=== PATIENT | female | born 1950 | race Caucasian/White ===

== ENCOUNTER 2020-07-26 18:23 | Inpatient (IN) | payer OTHER, MEDICAID ==
[~2020-07-26] VITALS: Ht 147.3 cm; Wt 56.3 kg
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
[2020-07-27 18:02] LABS: FOLIC ACID 22.6 ng/mL (8.6-58.9)
--- NOTE | 2020-07-28 00:11 | NUR ---
ARRIVED ON THE SENIOR BEHAVIOR FLOOR VIA W/C ACCOMPANIED BY X1 STAFF FROM [facility] EMERGENCY DEPARTMENT @ 20:10. A&OX4. COMPLAINING THAT DOES NOT BELONG IN THE HOSPITAL AND HAS NEVER HAD ANY HISTORY OF BEING CRAZY. vs 147/61 90 18 95% REFUSED TO ALLOW TEMP TO BE TAKEN. HRRR, LUNGS CTA, ABD NX 4q OVER A ROUND SOFT ABDOMEN. REPORTS BM 2 DAYS AGO. HAS APROPRIATE RANGE OF MOTION OF UPPER EXTREMITIES, HOWEVER WHEN SIGNING CONSENT TO TREAT, CAN HOLD THE PEN BUT CAN BARELY WRITE SIGNATURE. REPORTS HER STIFF HANDS ARE DUE TO DIABETES. FEET HAVE <3SEC CAP REFILL, PEDAL PULSES PRESENT. MOVES ALL EXTREMITIES. REPORTS VERY TICKLISH FEET. REPORTS CANNOT WALK AT ALL. NOTED TO BE ABLE TO STAND, BEAR WEIGHT AND PIVOT TO TRANSFER. WEARS GLASSES, HAS A BLACK PAIR WITH HER. REPORTS WEARS PARTIAL UPPER DENTURE, BUT DID NOT BRING IT TO THE HOSPITAL. ORAL TISSUE PINK. SKIN WARM AND DRY, NO SKIN BREAKDOWN NOTED. BED IN LOW POSITION, BED ALARM SET, WILL CONTINUE TO MONITOR PER UNIT PROTOCOL FOR SAFETY AND COMFORT.
[2020-07-28 01:06] LABS: GLYCOHEMOGLOBIN (HGB A1C) 11.4 % (4.8-5.6)
[2020-07-28 09:13] VITALS: BP 101/65
--- NOTE | 2020-07-28 11:53 | NUR ---
ANGRY FACIAL EXPRESSION,IRRITABLE MOOD-BECAME UPSET WHEN APPROACHED WITH AM ACCUCHECK AND INSULIN STATING "I DON'T CHECK MINE THAT OFTEN IT MAKES IT WORSE-I WILL DO IT THIS ONE TIME BUT NO MORE-BEGAN TO YELL AND PULLED AWAY WITH ATTEMPTED ADMINISTRATION OR O800 INSULIN "GOD EDUARD YOU I WILL LEAVE RIGHT NOW IF YOU DO THAT TO ME AGAIN" IS SBA X1 THIS AM-SMALL BM. RELUCTANT TO TAKE AM MEDICATIONS REQUESTING REPEAT X 4 OF NAMES-DOSES ETC PRIOR TO TAKING, VS STABLE-BRANDI PAIN/DISCOMFORT
[2020-07-28 20:53] VITALS: BP 104/71
--- NOTE | 2020-07-29 06:30 | NUR ---
PROGRESS PT IRRITABLE LAST NIGHT STATED "SHE DIDN'T THINK i WOULD SURVIVE THE NEXT FEW DAYS# BUT REFUSED TO EXPLAIN WHAT SHE EXACTLY MEANT. EASILY FRUSTRATED, DISTRUSTFUL. TOOK SOME MEDS AND REFUSED OTHERS UPSET THAT HER CLANEZEPAM WAS DC'D AND ATIVAN ORDERED IN PLACE. I ADVISED HER TO SPEAK TO THE DOCTOR ABOUT IT WHEN HE MAKES ROUNDS PT SETTLED DOWN THEN WENT TO BED SLEPT MOST OF NIGHT. CONTINUE POC.
[2020-07-29 09:57] VITALS: BP 104/71
[2020-07-29 09:59] VITALS: BP 116/75
--- NOTE | 2020-07-29 11:10 | NUR ---
ACCEPTED CARE OF PATIENT FROM 7P-7AM SHIFT. PATIENT IS UP,DRESSED IN W/C READY FOR BREAKFAST. REPEATEDLY VOICES THAT SHE DOESNT NEED TO BE HERE AND WHY CANT SHE TALK TO . ALSO NUMEROUS COMPLAINTS ABOUT FOOD. PT DOES TAKE AM MEDS AFTER NURSE EXPLAINING WHAT EACH ONE IS FOR. ACCUCHECK IS DONE AND REC INSULIN PER SLIDING SCALE. PT TAKES MEDS WHOLE,FEEDS SELF. PT ATTENDS GROUPS THIS AM AND WORKS WITH OT. SETS IN DAYROOM WITH PEERS BUT DOESNT INITIATE CONVERSATION.
--- NOTE | 2020-07-29 17:33 | NUR ---
DEBORAH was able to speak to the Pt's DPOA, Shamir Sarkar [phone]. Shamir informed the Pt lives in independently in an apartment. The Pt has recently started having frequent falls, increased confusion, and paranoia. Shamir stated the Pt has expressed feeling someone is breaking in her home and stealing her stuff or moving things around. Pt stays in her bedroom most of the time and only leaves to check the mail for 10 mins a day because Pt believes someone is watching her and waiting until she leaves to break in her home. Pt leaves her apartment with no pants just the adult diaper. Pt had to leave her previous home due to hoarding. Shamir also reported Pt does not take her medication or care for herself proper at home. On Pt was found in the apartment with feces and vomit on her and was unable to clean herself. Pt did have a home health aide company coming in to assist but Pt gets into fights withthe staff or fires them. PT family is intrested in a memory care LTC after SNF stay. DEBORAH will continue to follow
--- NOTE | 2020-07-29 17:51 | NUR ---
1700-PT IS TEARFUL TALKING WITH NURSE. WANTS TO GO HOME. COMPLAINS ABOUT FOOD HERE ON UNIT AND WORKED WITH HER TO PICK OUT HER SUPPER ITEMS."IM NOT GOING TO TAKE ANY MEDS OR GO TO GROUPS NOTHING IS HELPING ME. PT AGREES TO COME TO SUPPER AND EATS 100% OF ITEMS SHE PICKED OUT. TAKES PO MEDS. ENJOYS WATCHING NEWS WITH STAFF AND PEERS.
[2020-07-29 20:36] VITALS: BP 148/49
--- NOTE | 2020-07-30 04:59 | NUR ---
ASSUMED PT'S CARE THIS PM SHIFT. ALERT AND ORIENTED. PT WAS IN HER ROOM AT MEMO OF ASSESSMENT AND MED PASS. PT WAS CALM AND COOPERATIVE WITH MOST CARE. DID REFUSE ACCU CHECK THIS SHIFT. TOOK MEDS PER EMAR. PT SLEPT WELL THIS SHIFT. FALL PRECAUTION IN PLACE. HOURLY ROUNDINGS MADE. WILL CONTINUE TO MONITOR.
[2020-07-30 08:16] VITALS: BP 104/54
--- NOTE | 2020-07-30 13:27 | NUR ---
Alert and orientated X 3-4. Adamantly refusing meds, states she wants to go home and will refuse meds to achieve that goal. Contacted DPOA who then contacted other family members. They state they want her BG to be in better control and consent to meds being given by other routes if she continues to refuse meds. Dr. Meyer and SUPERMARKET MANAGER Nati notified. Pt. agreed to take meds on 3rd approach at 1015. Dr. Meyer subsequently ordered NPH insulin which pt took reluctantly after lunch. Denies SI/HI. Breath sounds clear. Reg HR auscultated. Color pink with brisk capillary refill and palpable peripheral pulses. Yellow urine per toilet. Active bowel sounds over soft, rounded abdomen. Large, brown soft stool per brief. Self propels self around unit in WC, requires supervision with transfers.
[2020-07-30 14:19] LABS: ABSOLUTE NEUTROPHILS 3.3 thou/uL (1.4-8.2); BASOPHILS 0.6 % (0.0-2.0); EOSINOPHILS 5.3 % (0.0-3.0); HEMATOCRIT 33.2 % (37.0-47.0); MCV 87.8 fL (80.0-100.0); MONOCYTES 11.8 % (1.0-8.0); PLATELET COUNT 165 thou/uL (150-400); POLYS 51.3 % (36.0-66.0); RBC 3.78 mil/uL (4.20-5.00); WBC 6.3 thou/uL (4.0-11.0)
[2020-07-30 14:36] LABS: ALBUMIN 2.8 g/dL (3.4-5.0); CALCIUM 9.4 mg/dL (8.5-10.1); CREATININE 0.8 mg/dL (0.6-1.0); MAGNESIUM 1.8 mg/dL (1.8-2.4); POTASSIUM 3.7 mmol/L (3.5-5.1); TOTAL BILIRUBIN 0.3 mg/dL (0.2-1.0); TOTAL PROTEIN 6.6 g/dL (6.4-8.2)
[2020-07-30 19:21] VITALS: BP 120/82
--- NOTE | 2020-07-31 00:35 | NUR ---
ASSUMED PT'S CARE THIS PM SHIFT. PUBLIC HEALTH EDUCATOR INFORMED NURSING THAT PT REFUSED ACCU CHECK. OTHERWISE PT WAS COOPERATIVE WITH REST OF CARE. PT VOICED FRUSTRATION ABOUT BEING HERE. PT VOICED THAT SHE WAS "TRICKED". PT VOICED THAT SHE WAS ASKED WHAT SHE WOULD DO IF HER ENTIRE FAMILY COMMITTED SUICIDE. PT VOICED SHE ANSWERED THAT SHE WOULD COMMIT SUICIDE ALSO AND THEY TAGGED HER BEING SUICIDAL AND ADMITTED HER FOR SI. PT VOICED SHE DOES NOT TRUST THE DOCTORS BECAUSE THEY WANT TO KEEP GIVING HER MEDS THAT SHE DOES NOT NEED. PT VOICED THAT THIS WAS ALL PART OF THE WAYS [employer] AND [employer] ARE TRYING TO REAP PEOPLE OFF IN ORDER TO MAKE MONEY. PT VOICED TO NURSING THAT EVEN HER KIDS ARE NOT HAPPY THAT SHE WAS ADMITTED INTO A BEHAVIORAL UNIT. PT EDUCATED ON IMPORTANCE OF COOPERATING WITH CARE. ALLOWING ACCU CHECKS AND TAKING MEDICATIONS. PT VOICED SHE CAN HAVE HER BLODO SUGAR CHECKED TWICE A DAY. MORNING AND BEDTIME. PT ALSO EDUCATED TO VOICE HER CONCERNS TO THE CONCERNS TO DOCTORS AND SOCIAL WORKERS. PT SEEMED CALM AND VOICED WILLINGNESS TO BE MORE COOPERATIVE WITH CARE. PT CURRENTLY IN BED, SLEEPING. WILL CONTINUE TO MONITOR.
--- NOTE | 2020-07-31 04:23 | NUR ---
PT CONTINUES TO SLEEP WELL THIS SHIFT. WILL CONTINUE TO MONITOR.
--- NOTE | 2020-07-31 08:45 | NUR ---
DEBORAH sent updates to [facility] for pt. SW team will continue to follow pt during her stay on this unit.
[2020-07-31 09:00] VITALS: BP 120/59
--- NOTE | 2020-07-31 11:42 | NUR ---
PT CARE ASSUMED AT 0700. A&Ox4. PT STILL FRUSTRATED THAT SHE WAS "TRICKED" INTO HER ADMISSION. STATED THIS AM THAT SHE CALLED OUT FOR HELP WHEN HAVING A BM BUT NOONE CAME TO HELP HER. WHEN ENTERING THE BATHROOM PT HAD SMEARED STOOL ALL OVER THE BATHROOM FLOOR, HEARN, TOILET, AND HERSELF. SHOWER WAS GIVEN. PT TOOK ALL MEDS WITHOUT ANY ISSUES. ACHS WITH COVERAGE. VITALS STABLE. STOOL SAMPLE COLLECTED. URINE SAMPLE NEEDED. WILL CONTINUE TO MONITOR.
[2020-07-31 18:51] LABS: URINE BILIRUBIN NEGATIVE (Negative); URINE BLOOD 1+ (Negative); URINE CLARITY CLEAR; URINE COLOR YELLOW; URINE GLUCOSE-RANDOM* TRACE (Negative); URINE KETONES NEGATIVE (Negative); URINE LEUKOCYTES-REFLEX TRACE (Negative); URINE NITRITE-REFLEX NEGATIVE (Negative); URINE PROTEIN (DIPSTICK) 1+ (Negative); URINE UROBILINOGEN 0.2 E.U./dl (0.2-1.0)
[2020-07-31 18:59] LABS: CASTS None Seen /LPF (None Seen); CRYSTALS None Seen /LPF (None Seen); SQUAMOUS >10 Many /LPF (0-3); URINE RBC 3-10 Few /HPF (0-2); URINE WBC-REFLEX 0-5 Rare /HPF (0-5)
[2020-07-31 19:00] LABS: BACTERIA-REFLEX None Seen /HPF (None Seen)
[2020-07-31 20:21] VITALS: BP 157/58
--- NOTE | 2020-07-31 21:21 | NUR ---
ASSUMED CARE ON 07/31/20 @ 1900, ACUCHECK 196, INSULIN HELD DUE TO LOW AND UNSTABLE BLOOD SUGARS AT EVENING MEAL. DESCRIBES PAIN IN LOWER BACK AND LOWER EXTREMITIES, HOWEVER REFUSED TYLENOL 650, SAYING THAT IT DOES NOT WORK. REPORTS LARGE SOFT BM TODAY, REFUSED STOOL SOFTENER. TOOK MEDS WHOLE WITH WATER. BED IN LOW POSITION, WILL CONTINUE TO MONITOR PER UNIT PROTOCOL.
[2020-08-01 07:50] VITALS: BP 96/47
--- NOTE | 2020-08-01 10:15 | NUR ---
ASSUMED CARE AT 0700 THIS MORNING. PT. UP, DRESSED AND IN THE DINING ROOM. SHE CONTINUES TO SAY, "I HAS BEEN HERE A WEEK AND I SHOULD BE ABLE TO GO HOME TODAY". SHE ATE WELL AT BREAKFAST AND TOOK HER MEDICATIONS WITHOUT PROLEMS NOTED.
--- NOTE | 2020-08-01 12:47 | NUR ---
RECEIVED EVAL ORDERS FROM DR. ONTIVEROS. OT EVALAUTED PT. ON 07/29/2020 AND DETERMINED PT. TO BE AT INDEP. LEVEL FOR TRANSFERS, W/C MOBILITY, SELF-CARES, AND TOILETING. OT SPOKE WITH PT. AT 1124 TODAY AND PT. DECLINES A REPEATED EVALUATION AT THIS TIME. STAFF REPORT PT. HAS NOT HAD A CHANGE IN FUNCTION.
--- NOTE | 2020-08-01 14:44 | NUR ---
Spoke with FANI Sue [phone]. Shamir was looking for an update on the patient. Was wondering about discharge and to where. Told Shamir that I know SW has been in contact with her current living facility and that SW would be in touch with her tomorrow to review options for the patient. Shamir very agreeable to this and acknowledged that the other daughters are anxious to have patient discharged before Val. Shamir herself understands that patient needs to be here and complete needed treatments before discharge.
[2020-08-01 20:08] VITALS: BP 136/81
--- NOTE | 2020-08-02 05:33 | NUR ---
PATIENT IS A/0X3-4. SHE HAS BEEN IN BED ALL SHIFT. SHE IS UP TO BS WITH ASSIST X1. SHE HAD LARGE FORMED BM 08/01. SHE DENIES PAIN. SHE HAS BEEN PLEASANT AND COOPERATIVE. ROUTINE ROUNDS TO ASSESS STATUS AND SAFETY OF PATIENT. CONTINUING TO MONITOR.
[2020-08-02 07:55] VITALS: BP 143/59
--- NOTE | 2020-08-02 09:22 | NUR ---
Care assumed of patient at 0715: Patient assisted out of bed with min assist x1. Using w/c for locomotion about room and unit. Patient alert and oriented x3-4. Patient fussy at times, demanding water instead of milk. Education provided regarding using manners and being polite to others. Patient accepted education without issue. Patient stated she did not "need" her medications but took them whole without issue. Ate breakfast without issue. No delusional or paranoia behaviors observed. No talk thus far this AM about going home, not belonging in the hospital, etc. Patient retired back to bed after breakfast and is resting at this time.
--- NOTE | 2020-08-02 13:00 | EKG ---
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 Wafer: Caleb PYLE : 1950 Requested By: Yumiko Iyer Order Number: [id number] MD: Karthik Turner Measurements Intervals [place] Rate: 83 P: 54 OK: 114 QRS: 67 QRSD: 90 T: 48 QT: 377 QTc: 443 Interpretive Statements Sinus rhythm Borderline short OK interval Compared to ECG 07/27/2020 10:47:02 Intraventricular conduction delay no longer present Electronically Signed On 08-02-2020 13:00:17 GUNITE MIXER by Karthik Turner [email or web address] <ELECTRONICALLY SIGNED> By: Karthik Turner MD, [facility] 08/02/20 1300 1236 1236 Karthik Turner MD, FACC /EPI
--- NOTE | 2020-08-02 16:09 | NUR ---
DEBORAH spoke with Michi at [facility] concerning discharge. Micih seemed hesitant about accpting the Pt back however expressed understanding of the agreement to take Pt back. Michi did ask if DEBORAH could send out referrals on the Pt to see if another facility would accept the Pt prior to d/c. Pt is set for d/c 08/03/2020 @ 1300 to [facility] SNF
--- NOTE | 2020-08-02 16:14 | NUR ---
DEBORAH contanted Shamir concerning referrals. Shamir is in agreement with DEBORAH sending referrals out for memory care facilities. DEBORAH sent referral to the following [email or web address] [facility] Jyoti Patel [facility]
[2020-08-02 19:26] VITALS: BP 131/66
--- NOTE | 2020-08-03 05:09 | NUR ---
PATIENT WAS UP IN NIGHT TO USE BSC A COUPLE OF TIMES. SHE DENIES PAIN, SI/HI/AVH. SHE IS EAGER TO GO HOME TODAY. COVID PCR LAB RESULT CAME BACK AT 0430 AND IS NEGATIVE. PATIENT APPEARS TO BE SLEEPING AT THIS TIME. BED IN LOW POSITION AND BED ALARM IS ON. CONTINUING TO ROUND TO ASSESS SAFETY AND STATUS OF PATIENT.
[2020-08-03] MEDS ORDERED: ZOLOFT25 MG PO (09:27)
[2020-08-03] MEDS ORDERED: COZAAR 25 MG TA25 M1 PO (09:27)
[2020-08-03] MEDS ORDERED: CEFUROXIME250 MG PO (09:27)
[2020-08-03] MEDS ORDERED: VITAMIN D325 MC1 PO (09:28)
[2020-08-03] MEDS ORDERED: TRAZODONE HCL50 MG PO (09:28)
[2020-08-03] MEDS ORDERED: ZYPREXA 5 MG TAB5 M1 PO (09:28)
[2020-08-03] MEDS ORDERED: HUMULIN 70100 UNIT/2 SUBQ (09:28)
--- NOTE | 2020-08-03 17:08 | NUR ---
ASSUMED PATIENT CARE AT 0700. PATIENT WAS IN HER ROOM RESTING. AT 0800 SHE CAME OUT AND ATE BREAKFAST. PATIENT WAS ALERT AND ORIENTED X4, VITAL SIGNS WERE STABLE. PATIENT WAS COOPERATIVE WITH CARE AND MEDICATION. SHE STATED HER GOAL WAS GET OUT OF THE HOSPITALS. HER CONCERNS WAS HER JEWELRY AT THE SECURITY. PATIENT GOT HER JEWELRY BACK FROM THE SECURITY DURING DISCHARGE. PATIENT WAS FUSSY, SHE DENIED SUICIDE IDEATION. PATIENT WAS DISCHARGE AT 1536, SHE WAS TRANSPORTED VIA WHEELCHAIR TO THE ER EXIT.DISCHARGE INSTRUCTION WAS GIVEN TO THE PATIENT. REPORT WAS CALLED TO CATHY AGUIRRE AT 1451. PATIENT WAS TAKING BY [employer]
== END 2020-08-03 15:36 | DRG 881 ==
LOC: SBH
PROVIDERS: Internal Medicine; ADMIT Psychiatry & Neurology Psychiatry; ATTEND Psychiatry & Neurology Psychiatry
DX: F32.9 Major depressive disorder, single episode, unspecified (principal); F01.51 Vascular dementia, unspecified severity, with behavioral disturbance; N17.9 Acute kidney failure, unspecified; N18.30 Chronic kidney disease, stage 3 unspecified; N39.0 Urinary tract infection, site not specified; E87.1 Hypo-osmolality and hyponatremia; E44.0 Moderate protein-calorie malnutrition; F22 Delusional disorders; E78.5 Hyperlipidemia, unspecified; G89.29 Other chronic pain; F41.9 Anxiety disorder, unspecified; E11.22 Type 2 diabetes mellitus with diabetic chronic kidney disease; D64.9 Anemia, unspecified; I12.9 Hypertensive chronic kidney disease with stage 1 through stage 4 chronic kidney disease, or unspecified chronic kidney disease; Z88.6 Allergy status to analgesic agent; Z88.2 Allergy status to sulfonamides; Z88.8 Allergy status to other drugs, medicaments and biological substances; Z68.25 Body mass index [BMI] 25.0-25.9, adult; Z79.899 Other long term (current) drug therapy; Z20.828 Contact with and (suspected) exposure to other viral communicable diseases
CPT/HCPCS: 10880

== ENCOUNTER 2020-07-26 21:44 | Emergency (ER) | payer OTHER, MEDICAID ==
[~2020-07-26] VITALS: Ht 147.3 cm; Wt 56.2 kg
[2020-07-26 21:50] VITALS: BP 170/74
== END 2020-07-27 02:08 | disposition home or self-care (01) ==
LOC: ER 21:44
DX: R46.89 Other symptoms and signs involving appearance and behavior (principal); I10 Essential (primary) hypertension; E11.9 Type 2 diabetes mellitus without complications; Z88.2 Allergy status to sulfonamides; Z20.828 Contact with and (suspected) exposure to other viral communicable diseases; Z88.5 Allergy status to narcotic agent; Z88.8 Allergy status to other drugs, medicaments and biological substances

== ENCOUNTER 2020-07-27 10:16 | Emergency (ER) | payer OTHER, MEDICAID ==
[~2020-07-27] VITALS: Ht 147.3 cm; Wt 56.2 kg
[2020-07-27 11:34] LABS: URINE BILIRUBIN NEGATIVE (Negative); URINE BLOOD 3+ (Negative); URINE COLOR YELLOW; URINE GLUCOSE-RANDOM* 3+ (Negative); URINE KETONES NEGATIVE (Negative); URINE NITRITE-REFLEX NEGATIVE (Negative); URINE PROTEIN (DIPSTICK) 2+ (Negative)
[2020-07-27 11:43] LABS: URINE LEUKOCYTES-REFLEX 1+ (Negative)
[2020-07-27 11:44] LABS: BASOPHILS 0.6 % (0.0-2.0); EOSINOPHILS 1.5 % (0.0-3.0); HEMATOCRIT 35.2 % (37.0-47.0); HEMOGLOBIN 11.4 gm/dL (12.0-15.0); LYMPHOCYTES 19.7 % (24.0-44.0); MCH 28.7 pg (26.0-34.0); MCHC 32.4 g/dL (28.0-37.0); MCV 88.5 fL (80.0-100.0); MONOCYTES 10.6 % (1.0-8.0); PLATELET COUNT 176 thou/uL (150-400); POLYS 67.6 % (36.0-66.0); RBC 3.98 mil/uL (4.20-5.00); RDW 12.8 % (10.5-14.5); WBC 8.9 thou/uL (4.0-11.0)
[2020-07-27 11:44] LABS: URINE CLARITY HAZY
[2020-07-27 12:02] LABS: ALBUMIN 2.9 g/dL (3.4-5.0); CREATININE 1.2 mg/dL (0.6-1.0); POTASSIUM 4.6 mmol/L (3.5-5.1); TOTAL BILIRUBIN 0.5 mg/dL (0.2-1.0); TOTAL PROTEIN 6.8 g/dL (6.4-8.2)
[2020-07-27 12:14] LABS: CASTS None Seen /LPF (None Seen); MUCUS 0-3 Light strn/LPF (None Seen); SQUAMOUS 0-3 Few /LPF (0-3)
[2020-07-27 12:15] LABS: CRYSTALS None Seen /LPF (None Seen); URINE RBC 3-10 Few /HPF (0-2); URINE WBC-REFLEX >25 Many /HPF (0-5); WBC CLUMPS Moderate (None Seen)
--- NOTE | 2020-07-27 15:39 | EKG ---
[address] [employer] [place] [address] ELECTROCARDIOGRAM REPORT Name: MERY AVILA Room #: REG RAYMUNDO Rodriguez#: [id number] Admission: 07/27/20 Attend Phys: Discharge: Date of : 46 Report #: [id number] [facility] ED Test Date: 2020-07-27 Test Time: 10:47:02 Pat Name: MERY AVILA Department: Room: Gender: F Construction Site Crossing Guard: ARAM : 1950 Requested By: Shelton Napier Order Number: [id number] MD: Karthik Turner Measurements Intervals [place] Rate: 89 P: 48 IA: 109 QRS: 68 QRSD: 139 T: 56 QT: 446 QTc: 543 Interpretive Statements Sinus rhythm Short IA interval Nonspecific intraventricular conduction delay No previous ECG available for comparison Electronically Signed On 07-27-2020 15:39:16 IDENTIFICATION CLERK by Karthik Turner [email or web address] <ELECTRONICALLY SIGNED> By: Karthik Turner MD, [facility] 07/27/20 1539 1047 1047 Karthik Turner MD, FACC /EPI
[2020-07-27 20:00] VITALS: BP 142/75
== END 2020-07-27 20:00 ==
LOC: ER 10:16
PROVIDERS: Emergency Medicine
DX: R45.1 Restlessness and agitation (principal); Z20.828 Contact with and (suspected) exposure to other viral communicable diseases; I10 Essential (primary) hypertension; E11.9 Type 2 diabetes mellitus without complications; Z88.5 Allergy status to narcotic agent; Z88.2 Allergy status to sulfonamides; Z88.8 Allergy status to other drugs, medicaments and biological substances